=== PATIENT | female | born 1985 | race African-American/Black ===

== ENCOUNTER 2023-07-15 14:55 | Emergency (ER) | payer OTHER, SELFPAY ==
[2023-07-15 15:03] VITALS: BP 132/96; PULSE 77; RESP 18; TEMP 36.6; O2SAT 100; BMI 51.3
--- NOTE | 2023-07-15 15:08 | DI.RAD.S_ITS ---
PROCEDURE: XR FOOT RT MIN 3V INDICATIONS: pain after injury TECHNIQUE: 3 views of the foot were acquired. COMPARISON: None. FINDINGS: Bones: No fractures or dislocations. No suspicious bony lesions. Soft tissues: No tibiotalar joint effusion. Achilles tendon appears normal. IMPRESSION: No visualized acute fracture or dislocation. However, if clinical concern and/or pain persist, short interval imaging followup in 7-10 days is recommended, as occult injury cannot be definitively excluded. Dictated by: Lynsey Eubanks M.D. on 07/15/2023 at 15:56 Approved by: Lynsey Eubanks M.D. on 07/15/2023 at 15:56
--- NOTE | 2023-07-15 15:53 | ED_ITS ---
HPI - Extremity Injury (Lower) <Lor Waters PA-C - Last Filed: 07/15/23 16:18> General Chief Complaint: Extremity Injury, Lower Stated Complaint: rt foot injury Time Seen by Provider: 07/15/23 15:48 Source: patient Mode of arrival: Ambulatory History of Present Illness HPI Narrative: 37-year-old female presents today with right great toe pain. At approximately 1:00 a.m. this afternoon she was trying to move a tray table when it fell and landed directly on her great toenail on the right side. She had immediate pain, she also endorsed some tingling traveling down to the heel. She has been walking on the lateral edge of her foot to minimize any discomfort. She has been icing it, but no medication for the pain. She is denying any other injuries. All other systems are reviewed and are negative. Related Data Allergies Allergy/AdvReac Type Severity Reaction Status Date / Time No Known Drug Allergies Allergy Verified 07/15/23 15:03 Review of Systems <Lor Waters PA-C - Last Filed: 07/15/23 16:18> Review of Systems Narrative: All other systems are reviewed and are negative. Patient History <Lor Waters PA-C - Last Filed: 07/15/23 16:18> Social History Smoking Status: Never smoker Smoking Status: Never smoker Substance Use Type: does not use Exam <NERY Beckman Last Filed: 07/15/23 16:18> Initial Vital Signs Initial Vital Signs: Vital Signs Temperature 98 F 07/15/23 15:03 Pulse Rate 77 07/15/23 15:03 Respiratory Rate 18 07/15/23 15:03 Blood Pressure 132/96 H 07/15/23 15:03 Pulse Oximetry 100 07/15/23 15:03 Oxygen Delivery Method Room Air 07/15/23 15:03 Vital signs reviewed and are normal. Const Other: Smiling, seated on the exam chair leg elevated in no distress currently icing her foot. Resp Other: Clear to auscultation throughout. Cardio Other: Regular rate and rhythm. Extrem Other: Right great toe there is a small 2-3 mm linear nail plate laceration on the medial aspect. Small subungual hematoma at the base measuring about 15% of the total nail. Portion of the nail plate is from the nail matrix underneath but there is no bleeding. It is not loose. She has full range of motion to the toes, she is tender however with palpation to the tip of the toe and the plantar aspect. No issues with the MTP joint line, no issues identified with the foot or ankle. Normal capillary refill, normal DP and PT pulses. Sensory is grossly intact. <Marito Jordan DO - Last Filed: 07/15/23 16:37> Initial Vital Signs Initial Vital Signs: Vital Signs Temperature 98 F 07/15/23 15:03 Pulse Rate 77 07/15/23 15:03 Respiratory Rate 18 07/15/23 15:03 Blood Pressure 132/96 H 07/15/23 15:03 Pulse Oximetry 100 07/15/23 15:03 Oxygen Delivery Method Room Air 07/15/23 15:03 Course <Lor Waters PA-C - Last Filed: 07/15/23 16:18> Course Course Narrative: Radiographs performed they are negative for fracture. She was icing in the exam room with elevation. She is comfortable. Orders Ordered: ED Orders 07/15/23 15:08 XR foot RT min 3V Stat Vital Signs Vital signs: Vital Signs - 8 hr 07/15/23 15:03 Temperature 98 F Pulse Rate 77 Respiratory Rate 18 Blood Pressure 132/96 H Pulse Oximetry 100 Oxygen Delivery Method Room Air <Marito Jordan DO - Last Filed: 07/15/23 16:37> Orders Ordered: ED Orders 07/15/23 15:08 XR foot RT min 3V Stat Vital Signs Vital signs: Vital Signs - 8 hr 07/15/23 15:03 Temperature 98 F Pulse Rate 77 Respiratory Rate 18 Blood Pressure 132/96 H Pulse Oximetry 100 Oxygen Delivery Method Room Air MDM - Extremity Injury (Lower) <Lor Waters PA-C - Last Filed: 07/15/23 16:18> Medical Records Attestation: I reviewed the patient's medical records. Imaging Data Extremity x-ray #1: My Impression: No fracture Radiologist's Impression: PROCEDURE: XR FOOT RT MIN 3V INDICATIONS: pain after injury TECHNIQUE: 3 views of the foot were acquired. COMPARISON: None. FINDINGS: Bones: No fractures or dislocations. No suspicious bony lesions. Soft tissues: No tibiotalar joint effusion. Achilles tendon appears normal. IMPRESSION: No visualized acute fracture or dislocation. However, if clinical concern and/or pain persist, short interval imaging followup in 7-10 days is recommended, as occult injury cannot be definitively excluded. Dictated by: Lynsey Eubanks M.D. on 07/15/2023 at 15:56 Approved by: Lynsey Eubanks M.D. on 07/15/2023 at 15:56 [facility] Narrative Medical decision making narrative: Small subungual hematoma of the right great toe approximately 15%, it is at the base, no clinical findings to warrant drainage, she has a small nail separation of the nail plate and a linear nail plate laceration measuring about 2-3 mm no involvement of the underlying tissues, no bleeding. Her x-ray is negative for fracture. She will do pain management with Tylenol or ibuprofen, we discussed a cold soak using a bowl of water with some ice cubes floating and she can submerge the entire foot or toe for about 30-45 seconds for good circumferential icing. This will strength tissues and give her immediate relief although temporary. She will then remove and repeat as many times as she would like. Avoid tissue injury however. I have asked her to trim the nail to avoid new injury, monitor for any worsening signs, do elevate the toe, foot to minimize throbbing. Follow up with the primary care physician as needed. She will return to the emergency department if she has any increased swelling, pain, darkening of the toe or any other worrisome symptoms. Discharge Plan Departure Patient Disposition: Home Clinical Impression: Subungual hematoma of great toe of right foot Qualifiers: Encounter type: initial encounter Qualified Code(s): S90.211A - Contusion of right great toe with damage to nail, initial encounter Contusion of great toe with damage to nail Qualifiers: Encounter type: initial encounter Laterality: right Qualified Code(s): S90.211A - Contusion of right great toe with damage to nail, initial encounter Instructions: DI for Nail Avulsion Injury Activity Restrictions/Additional Instructions: You have a small subungual hematoma which is a blood collection underneath the nail plate. Sometimes it will increase in size after a day or 2 so monitor for this, if it becomes more than 50% of the nail or causing you severe throbbing and pain sometimes we drain these. Please try an elevate the foot as much as possible to minimize the chance of this occurring, also do a cold foot soak in a bowl of water with a few ice cubes floating submerge the entire foot and toe for about 30 seconds to 45 seconds and then remove, you may repeat several times in an hour or throughout the day. You may take Tylenol ibuprofen as needed for pain. Regarding the nail plate itself try to trim or file it to prevent it from getting caught on anything and bending backwards. The nail will take 3-6 months to grow out. Your x-rays did not show any signs of fracture try to limit your activity to avoid new injury, re-injury or any new pain. Wear protective wide toe box footwear. Return to the emergency department if you have any worsening symptoms or any other concerns. Referrals: Sasha Wilson, JULITA, PATIENT ACCOUNT ANALYST [Primary Care Provider] - Stand Alone Forms: Patient Portal/API ED Sign-out <Marito Jordan DO - Last Filed: 07/15/23 16:37> Cosign ED Attending Cosignature Attestation: Dr Jordan Co-Sign Statement: I was available for consultation during this patient's emergency department visit. This chart is signed by myself for administrative purposes only. I did not have direct contact with this patient during this visit. They were seen independently by the APC.
== END 2023-07-15 16:15 | disposition home or self-care (01) ==
PROVIDERS: Emergency Provider Physician Assistant Medical; PCP Nurse Practitioner Family
DX: S90.211A Contusion of right great toe with damage to nail, initial encounter (principal); W20.8XXA Other cause of strike by thrown, projected or falling object, initial encounter
CPT/HCPCS: 73630; 99282; 99283